=== PATIENT | male | born 1965 | race Caucasian/White ===

== ENCOUNTER 2018-11-17 08:39 | Emergency (ER) | payer MEDICARE, MEDICAID ==
[~2018-11-17] VITALS: Ht 182.9 cm; Wt 100.0 kg
[~2018-11-17 08:39] MED LIST: HYDR-4383 PO
[2018-11-17 09:02] VITALS: BP 125/65
== END 2018-11-17 10:24 | disposition home or self-care (01) ==
LOC: ER 08:39
DX: I87.8 Other specified disorders of veins (principal); Z79.899 Other long term (current) drug therapy; Z59.0 Homelessness; Z56.0 Unemployment, unspecified
CPT/HCPCS: 82948; 99282

== ENCOUNTER 2019-01-15 12:41 | Emergency (ER) | payer MEDICARE, MEDICAID ==
[~2019-01-15] VITALS: Ht 182.9 cm; Wt 90.9 kg
[2019-01-15] MEDS ORDERED: METH4TAB81 PO (14:36)
[2019-01-15 14:50] VITALS: BP 128/88
== END 2019-01-15 14:50 | disposition home or self-care (01) ==
LOC: ER 12:42
DX: M25.512 Pain in left shoulder (principal); Z79.899 Other long term (current) drug therapy; Z59.0 Homelessness; Z56.0 Unemployment, unspecified; X50.1XXA Overexertion from prolonged static or awkward postures, initial encounter; Y93.89 Activity, other specified; Y92.89 Other specified places as the place of occurrence of the external cause; Y99.8 Other external cause status
CPT/HCPCS: 99283

== ENCOUNTER 2024-02-28 08:22 | Outpatient (CLI) | payer MEDICARE ==
[~2024-02-28 08:22] MED LIST changes: +METH4TAB81 PO
== END 2024-02-28 23:59 | disposition home or self-care (01) ==
LOC: RAD 08:22
PROVIDERS: ATTEND General Practice
DX: M25.511 Pain in right shoulder (principal); R05.1 Acute cough
CPT/HCPCS: 71046; 73030